=== PATIENT | female | born 1975 ===

== ENCOUNTER 2017-07-27 12:39 | Inpatient (IN) | payer BC ==
[2017-07-24 13:36] VITALS: BMI 28.5
[2017-07-27] MEDS ORDERED: Lactated Ringer's 1,000 ML IV ONE ×2 (16:35→19:20)
[2017-07-27] MEDS ORDERED: Propofol 10 mg/ml Inj (20 ML) ONE (16:37)
[2017-07-27] MEDS ORDERED: Midazolam 2 MG/2 ML VIAL ONE (16:38)
[2017-07-27] MEDS ORDERED: ceFAZolin IV 2 gm in Dextrose 1 GM/50 ML BAG IVPB ONE (16:47)
[2017-07-27] MEDS ORDERED: Bupivacaine 0.5% Inj(30mL) ONE (17:16)
[2017-07-27] MEDS ORDERED: Methylene Blue 10 mg/mL(10ml) IV ONE (21:01)
[2017-07-27] MEDS ORDERED: Neostigmine Methylsulfate 3mg/3ml Syringe IV ONE (21:24)
[2017-07-27] MEDS ORDERED: Naloxone 0.4 mg/ml Inj (Adult) IVP PRN (21:54)
[2017-07-27] MEDS ORDERED: Morphine Monoject Barrel PCA 1mg/ml IV PRN (21:54)
[2017-07-27] MEDS ORDERED: DiphenhydrAMINE 50 mg/ml Inj IVP PRN (21:54)
[2017-07-27] MEDS ORDERED: Oxycodone/Acetaminophen 5/325 mg Tab PO PRN (21:57)
[2017-07-27] MEDS ORDERED: Lactated Ringer's 1,000 ML IV SCH (22:00)
[2017-07-27 22:20] LABS: BASO % 0.4 % (0.0-2.0); EOS # 0.1 K/uL (0.0-0.7); EOS % 0.7 % (0.0-4.0); HEMATOCRIT 34.6 % (34.0-47.0); LYMPH # 1.2 K/uL (1.0-4.3); LYMPH % 8.8 % (20.0-40.0); MEAN CELL VOLUME 97.9 fL (81.0-99.0); MEAN CORPUSCULAR HGB CONC 32.7 g/dL (33.0-37.0); MEAN PLATELET VOLUME 8.4 fL (7.2-11.7); MONO # 0.7 K/uL (0.0-0.8); MONO % 5.4 % (0.0-10.0); PLATELET COUNT 262 K/uL (130-400); RED CELL DISTRIBUTION WIDTH 16.6 % (11.5-14.5)
[2017-07-27 22:25] LABS: CHLORIDE 101 mmol/L (98-107)
[2017-07-27 22:26] LABS: POTASSIUM 4.2 mmol/L (3.6-5.2); SODIUM 131 mmol/L (132-148)
[2017-07-27 22:28] LABS: CARBON DIOXIDE 21 mmol/L (22-30); GFR AFRICAN-AMERICAN > 60
[2017-07-27 22:29] LABS: ALKALINE PHOSPHATASE 88 U/L (38-126); ALT/SGPT 41 U/L (9-52); AST/SGOT 31 U/L (14-36); BILIRUBIN,TOTAL 0.6 mg/dL (0.2-1.3); BLOOD UREA NITROGEN 12 mg/dL (7-17); CALCIUM 8.3 mg/dl (8.6-10.4); GLUCOSE,RANDOM 118 mg/dL (65-105); TOTAL PROTEIN 7.3 g/dL (6.3-8.3)
[2017-07-27] MEDS ORDERED: Sodium Chloride 0.9% 1,000 ML IV SCH (23:00)
[2017-07-27] MEDS ORDERED: Sodium Chloride 0.9% 1,000 ML IV ONE (23:55)
[2017-07-28 01:51] LABS: NEUTROPHIL 86 % (50-75); TOTAL CELLS COUNTED 100
[2017-07-28] MEDS: ceFAZolin IV 1 gm in Dextrose 1 GM/50 ML BAG IVPB SCH ×3 (03:49→20:18)
--- NOTE | 2017-07-28 04:39 | CP.PCM.PN ---
Subjective - Date & Time of Evaluation Date of Evaluation: 07/28/17 Time of Evaluation: 04:30 - Subjective Subjective: Pt seen and examined and report paoin over lower abdomen and incsin only partially imporved iwth internet ecommerce specialist medication. pt not yet ambulaitng, good urine output , toelrating ice chips, denies any headaches, blurry vision. Objective - Vital Signs/Intake and Output Vital Signs (last 24 hours): Temp Pulse Resp BP Pulse Ox 98.3 F 74 20 136/88 100 07/28/17 01:00 07/28/17 01:30 07/28/17 01:30 07/28/17 01:30 07/28/17 01:30 Intake and Output: 07/27/17 07/28/17 18:59 06:59 Output Total 250 Balance -250 - Medications Medications: Current Medications Diphenhydramine HCl (Benadryl) 25 mg IVP Q6 PRN PRN Reason: Itching / Pruritus Lactated Ringer's (Lactated Ringer's) 1,000 mls @ 100 mls/hr IV .Q10H ESPINOZA Cefazolin Sodium/Dextrose (Ancef Iv 1 Gm Duplex) 1 gm in 50 mls @ 100 mls/hr IVPB Q8H ESPINOZA Stop: 07/28/17 20:29 Last Admin: 07/28/17 03:49 Dose: 100 mls/hr Sodium Chloride (Sodium Chloride 0.9%) 1,000 mls @ 100 mls/hr IV .Q10H ESPINOZA Ketorolac Tromethamine (Toradol) 30 mg IVP STAT STA Stop: 07/28/17 04:35 Morphine Sulfate (Morphine) 2 mg IVP Q15MIN PRN PRN Reason: Pain, severe (8-10) Stop: 07/28/17 06:00 Last Admin: 07/28/17 02:28 Dose: 2 mg Morphine Sulfate/Sodium Chloride (Morphine Pediatric Sports Medicine Specialist Monoject Barrel) 30 mg IV Q4H PRN; Protocol PRN Reason: Pain, moderate (4-7) Stop: 07/28/17 21:54 Last Admin: 07/27/17 22:30 Dose: 30 mg Naloxone HCl (Narcan) 0.04 mg IVP Q2M PRN PRN Reason: To reverse sedation Ondansetron HCl (Zofran Inj) 4 mg IVP Q8H PRN PRN Reason: Nausea/Vomiting Oxycodone/Acetaminophen (Percocet 5/325 Mg Tab) 1 tab PO Q4 PRN PRN Reason: Pain, moderate (4-7) Stop: 07/30/17 21:58 Oxycodone/Acetaminophen (Percocet 5/325 Mg Tab) 2 tab PO Q4H PRN PRN Reason: Pain, severe (8-10) Stop: 07/30/17 21:58 - Labs Labs: 07/27/17 22:14 07/27/17 22:14 - Constitutional Appears: Well, Non-toxic - Head Exam Head Exam: ATRAUMATIC - Eye Exam Eye Exam: EOMI, Normal appearance, PERRL Pupil Exam: NORMAL ACCOMODATION - ENT Exam ENT Exam: Mucous Membranes Moist, Normal Exam - Neck Exam Neck Exam: Full ROM, Normal Inspection - Respiratory Exam Respiratory Exam: Clear to Ausculation Bilateral, NORMAL BREATHING PATTERN - Cardiovascular Exam Cardiovascular Exam: REGULAR RHYTHM, +S1, +S2 - GI/Abdominal Exam GI & Abdominal Exam: Soft, Normal Bowel Sounds Additional comments: approrpriately TTP, no guarding, no reboudn tenderness, no rigidity, +BS INcsion C/D/I no vaignal bleeding - Extremities Exam Extremities Exam: Normal Inspection Additional comments: neative gauri's sign, no calf tendenress - Back Exam Back Exam: NORMAL INSPECTION - Neurological Exam Neurological Exam: Alert, Awake, Oriented x3 - Psychiatric Exam Psychiatric exam: Normal Affect, Normal Mood - Skin Skin Exam: Dry, Intact, Normal Color, Warm Assessment and Plan (1) S/P hysterectomy Assessment & Plan: 42 y/o s/p Laparascopic converted to open abdominal hysterectomy POD #1 1. Pain Manamgnet; PCP, TOradol 30mg IVP q 6 hour PRN will transition to PO later in AM 2. D/c martinez 3. Advance diet as tolerated 4. Abdominal binder, incentive spirometer 5. LR @ 100cc/hour 6. IV Helplck once toelratinge regular diet 7. Restart home meds in AM 8. AM labs 9. Encouarge out of bed adn ambaution once d/c internet ecommerce specialist and better pain control Status: Acute
--- NOTE | 2017-07-28 04:43 | PCM.SURG1 ---
Surgeon's Initial Post Op Note - Surgeon's Notes Surgeon: Dianne Youssef MD Manager Of Regulatory Affairs: Leon Pereyra MD Type of Anesthesia: General Endo Pre-Operative Diagnosis: Abnormal uterine bleeding, pelvic pain Operative Findings: Enlarged 12 week uterus, with multiple myomas within right broad ligament x 4 ranging in size 1cm to 4cm, normal ovaires bilaterally, evidecne of short trunacated fallopain tubes from previous tubal ligation, unable to obtain adequate hemostasis despite pressure, hemostati agents, decision made to open and hemostaiss acheive. prolonged duration of operation time grated than 3.5 hours due to increased vascularity from enlarged myomatous uteurs. Bilteral uretal jets visulzied on cystoscopy. Dr Leon Pereyra was surigcal assistna and present for entire case and essential in gaining inital laparascopy entry, retraction, expsoure, holding camera, helping to maniupte uterus for surgical dissection, obtainign hemostasis, converting to open, completing prcoedure, with hysterectomy, obtainign hemostais and closing. Post-Operative Diagnosis: same as above, myomatous uterus Operation Performed: Laparascopic hysterectomy converted to open Abdominal hysterectomy with cystoscopy Specimen/Specimens Removed: uteurs with multiple myoma and fibroids Estimated Blood Loss: EBL {In ML}: 500 (urine output : 500cc) Blood Products Given: N/A Drains Used: No Drains Date of Surgery/Procedure: 07/28/17 Time of Surgery/Procedure: 16:35
--- NOTE | 2017-07-28 08:26 | RAD ---
HISTORY: s/p surgery , insturment COMPARISON: No prior. FINDINGS: BOWEL: There is a nonspecific bowel gas pattern appreciate with limited gas identified within the large bowel and some probable small bowel loops filled with gas in the central abdomen medial to gas filled proximal transverse colon segment. No definite free intrarenal gas. No suspicious intra-abdominal calcifications. BONES: Normal. OTHER FINDINGS: None. IMPRESSION: Nonspecific bowel gas pattern is appreciated. No gross free intrarenal gas. Clinical correlation and follow-up radiography is recommended.
[2017-07-28 09:11] LABS: BASO % 0.2 % (0.0-2.0); EOS % 0.4 % (0.0-4.0); HEMATOCRIT 28.8 % (34.0-47.0); LYMPH # 0.8 K/uL (1.0-4.3); MEAN CELL VOLUME 99.4 fL (81.0-99.0); MEAN CORPUSCULAR HEMOGLOBIN 33.3 pg (27.0-31.0); MEAN CORPUSCULAR HGB CONC 33.5 g/dL (33.0-37.0); MEAN PLATELET VOLUME 8.6 fL (7.2-11.7); MONO # 0.6 K/uL (0.0-0.8); MONO % 6.2 % (0.0-10.0); NRBC % 0.1 % (0.0-2.0); PLATELET COUNT 220 K/uL (130-400); RED CELL DISTRIBUTION WIDTH 16.8 % (11.5-14.5); WHITE BLOOD COUNT 9.4 K/uL (4.8-10.8)
[2017-07-28 09:20] LABS: CHLORIDE 101 mmol/L (98-107); SODIUM 133 mmol/L (132-148)
[2017-07-28 09:23] LABS: BLOOD UREA NITROGEN 12 mg/dL (7-17); CARBON DIOXIDE 24 mmol/L (22-30); GFR AFRICAN-AMERICAN > 60
[2017-07-28 09:24] LABS: CALCIUM 7.4 mg/dl (8.6-10.4); GLUCOSE,RANDOM 93 mg/dL (65-105)
[2017-07-28 09:58] LABS: NEUTROPHIL 86 % (50-75); PLATELET CLUMPS PRESENT; TOTAL CELLS COUNTED 100
[2017-07-28] MEDS: Oxycodone/Acetaminophen 5/325 mg Tab PO PRN (17:39)
[2017-07-28] MEDS ORDERED: Magnesium Hydroxide Susp 30 ml UD PO PRN (20:43)
[2017-07-28] MEDS: Simethicone 80 mg Chewtab PO SCH (21:27)
[2017-07-28] MEDS ORDERED: Simethicone 80 mg Chewtab ONE (21:27)
[2017-07-29] MEDS: Oxycodone/Acetaminophen 5/325 mg Tab PO PRN ×3 (03:40→20:40)
[2017-07-29] MEDS: Simethicone 80 mg Chewtab PO SCH ×3 (06:52→20:43)
--- NOTE | 2017-07-29 09:03 | CP.PCM.PN ---
<Katie Garrido - Last Filed: 07/29/17 08:59> Subjective - Date & Time of Evaluation Date of Evaluation: 07/29/17 Time of Evaluation: 08:59 - Subjective Subjective: PROJECTS MANAGER Progress Note: Patient was seen and examined in the AM at bedside. Patient states her pain is currently 3/10 and the pain medication is working. Patient stated she did walk around yesterday. She states she does not have much of an appetite. She states she has passed flatus but denies a bowel movement. She denies fever, nausea or vomiting. Objective - Vital Signs/Intake and Output Vital Signs (last 24 hours): Temp Pulse Resp BP Pulse Ox 98.2 F 87 20 126/78 100 07/29/17 07:56 07/29/17 07:56 07/29/17 07:56 07/29/17 07:56 07/29/17 07:56 - Medications Medications: Current Medications Diphenhydramine HCl (Benadryl) 25 mg IVP Q6 PRN PRN Reason: Itching / Pruritus Lactated Ringer's (Lactated Ringer's) 1,000 mls @ 100 mls/hr IV .Q10H ESPINOZA Sodium Chloride (Sodium Chloride 0.9%) 1,000 mls @ 100 mls/hr IV .Q10H ESPINOZA Ketorolac Tromethamine (Toradol) 30 mg IVP Q6H PRN PRN Reason: Pain, severe (8-10) Last Admin: 07/28/17 20:20 Dose: 30 mg Magnesium Hydroxide (Milk Of Magnesia) 30 ml PO Q6 PRN PRN Reason: Constipation Last Admin: 07/29/17 03:37 Dose: 30 ml Naloxone HCl (Narcan) 0.04 mg IVP Q2M PRN PRN Reason: To reverse sedation Ondansetron HCl (Zofran Inj) 4 mg IVP Q8H PRN PRN Reason: Nausea/Vomiting Oxycodone/Acetaminophen (Percocet 5/325 Mg Tab) 1 tab PO Q4 PRN PRN Reason: Pain, moderate (4-7) Stop: 07/30/17 21:58 Oxycodone/Acetaminophen (Percocet 5/325 Mg Tab) 2 tab PO Q4H PRN PRN Reason: Pain, severe (8-10) Stop: 07/30/17 21:58 Last Admin: 07/29/17 03:40 Dose: 2 tab Sennosides (Senokot Tab) 17.2 mg PO DAILY [facility] Last Admin: 07/28/17 21:26 Dose: 17.2 mg Simethicone (Mylicon Chew Tab) 80 mg PO Q8 [facility] Last Admin: 07/29/17 06:52 Dose: 80 mg - Labs Labs: 07/28/17 09:00 07/28/17 09:00 - Constitutional Appears: No Acute Distress - Head Exam Head Exam: ATRAUMATIC, NORMAL INSPECTION, NORMOCEPHALIC - Eye Exam Eye Exam: EOMI, Normal appearance - ENT Exam ENT Exam: Mucous Membranes Moist - Respiratory Exam Respiratory Exam: NORMAL BREATHING PATTERN - Cardiovascular Exam Cardiovascular Exam: REGULAR RHYTHM, RRR - GI/Abdominal Exam GI & Abdominal Exam: Soft, Tenderness, Normal Bowel Sounds Additional comments: incision is dry and intact - Extremities Exam Extremities Exam: Normal Inspection. absent: Joint Swelling, Pedal Edema, Tenderness - Neurological Exam Neurological Exam: Alert, Awake, Oriented x3 - Psychiatric Exam Psychiatric exam: Normal Affect, Normal Mood - Skin Skin Exam: Dry, Intact, Normal Color, Warm Assessment and Plan - Assessment and Plan (Free Text) Assessment: 1.) Laparascopic hysterectomy converted to open Abdominal hysterectomy with cystoscopy - Post op day 2 - Continue pain management - Encourage ambulation - Keep dressing dry and clean - Disposition: discharge tomorrow Case discussed with Dr. Miakel Garrido PGY-1 <Dianne Youssef - Last Filed: 07/30/17 21:39> Subjective - Subjective Subjective: agree with above s/p lap converted to open hysterecotmy pOD #2 improving cont curreng managment regualr dieet encoaurge ambaiton bowel regimen labs Objective - Vital Signs/Intake and Output Vital Signs (last 24 hours): Temp Pulse Resp BP Pulse Ox 98.2 F 85 18 119/77 99 07/30/17 08:00 07/30/17 08:00 07/30/17 08:00 07/30/17 08:00 07/30/17 08:00 - Labs Labs: 07/28/17 09:00 07/28/17 09:00 Assessment and Plan (1) S/P hysterectomy Status: Acute
[2017-07-29] MEDS ORDERED: Influenza Vaccine 60 mcg/0.5 mL SYR (4YR UP) IM ONE (09:06)
[2017-07-30 07:48] VITALS: BP 119/77; PULSE 85; RESP 18; TEMP 98.2; O2SAT 99
--- NOTE | 2017-07-30 08:28 | CP.PCM.DIS ---
Provider - Provider Date of Admission: 07/27/17 21:57 Attending physician: Dianne Youssef MD Time Spent in preparation of Discharge (in minutes): 31 Hospital Course - Lab Results Lab Results: Most Recent Lab Values WBC 9.4 K/uL (4.8-10.8) 07/28/17 09:00 RBC 2.90 Mil/uL (3.80-5.20) L 07/28/17 09:00 Hgb 9.6 g/dL (11.0-16.0) L 07/28/17 09:00 Hct 28.8 % (34.0-47.0) L 07/28/17 09:00 MCV 99.4 fL (81.0-99.0) H 07/28/17 09:00 MCH 33.3 pg (27.0-31.0) H 07/28/17 09:00 MCHC 33.5 g/dL (33.0-37.0) 07/28/17 09:00 RDW 16.8 % (11.5-14.5) H 07/28/17 09:00 Plt Count 220 K/uL (130-400) 07/28/17 09:00 MPV 8.6 fL (7.2-11.7) 07/28/17 09:00 Neut % (Auto) 84.2 % (50.0-75.0) H 07/28/17 09:00 Lymph % (Auto) 9.0 % (20.0-40.0) L 07/28/17 09:00 [place] % (Auto) 6.2 % (0.0-10.0) 07/28/17 09:00 Eos % (Auto) 0.4 % (0.0-4.0) 07/28/17 09:00 Baso % (Auto) 0.2 % (0.0-2.0) 07/28/17 09:00 Neut # 7.9 K/uL (1.8-7.0) H 07/28/17 09:00 Lymph # 0.8 K/uL (1.0-4.3) L 07/28/17 09:00 [place] # 0.6 K/uL (0.0-0.8) 07/28/17 09:00 Eos # 0.0 K/uL (0.0-0.7) 07/28/17 09:00 Baso # 0.0 K/uL (0.0-0.2) 07/28/17 09:00 Neutrophils % (Manual) 86 % (50-75) H 07/28/17 09:00 Band Neutrophils % 4 % (0-2) H 07/28/17 09:00 Lymphocytes % (Manual) 8 % (20-40) L 07/28/17 09:00 Monocytes % (Manual) 2 % (0-10) 07/28/17 09:00 Platelet Estimate Normal (NORMAL) 07/28/17 09:00 Plt Clumps, EDTA Present 07/28/17 09:00 Anisocytosis (manual) Slight 07/28/17 09:00 Macrocytosis (manual) Slight 07/28/17 09:00 Sodium 133 mmol/L (132-148) 07/28/17 09:00 Potassium 4.0 mmol/L (3.6-5.2) 07/28/17 09:00 Chloride 101 mmol/L (98-107) 07/28/17 09:00 Carbon Dioxide 24 mmol/L (22-30) 07/28/17 09:00 Anion Gap 12 (10-20) 07/28/17 09:00 BUN 12 mg/dL (7-17) 07/28/17 09:00 Creatinine 0.9 mg/dL (0.7-1.2) 07/28/17 09:00 Est GFR ( Amer) > 60 07/28/17 09:00 Est GFR (Non-Af Amer) > 60 07/28/17 09:00 Random Glucose 93 mg/dL (65-105) 07/28/17 09:00 Calcium 7.4 mg/dl (8.6-10.4) L 07/28/17 09:00 Total Bilirubin 0.6 mg/dL (0.2-1.3) 07/27/17 22:14 AST 31 U/L (14-36) 07/27/17 22:14 ALT 41 U/L (9-52) 07/27/17 22:14 Alkaline Phosphatase 88 U/L (38-126) 07/27/17 22:14 Total Protein 7.3 g/dL (6.3-8.3) 07/27/17 22:14 Albumin 3.6 g/dL (3.5-5.0) 07/27/17 22:14 Globulin 3.7 gm/dL (2.2-3.9) 07/27/17 22:14 Albumin/Globulin Ratio 1.0 (1.0-2.1) 07/27/17 22:14 Blood Type O POSITIVE 07/27/17 13:14 Antibody Screen Negative 07/27/17 13:14 - Hospital Course Hospital Course: Patient is a 42 year old female with history of uterine fibroids, abnormal uterine bleeding and pelvic pain who presented to [facility] for scheduled laparoscopic hysterectomy. Patient was pre-oped and consented. Patient underwent laparoscopic hysterectomy converted to open abdominal hysterectomy with cystoscopy. Patient tolerated the procedure well and was monitored post operatively. Pain was controlled. Patient was ambulating and tolerating diet. Passing flatus and having BMs. Urinating without difficulty. Patient medically stable for discharge. Advised pelvic rest x 6 weeks and instructed to follow up with Dr Youssef within 1 week. All questions and concerns were addressed. Discharge Exam - Head Exam Head Exam: ATRAUMATIC, NORMAL INSPECTION, NORMOCEPHALIC - Eye Exam Eye Exam: EOMI, Normal appearance Pupil Exam: NORMAL ACCOMODATION, PERRL - ENT Exam ENT Exam: Mucous Membranes Moist - Neck Exam Neck exam: Full Rom - Respiratory Exam Respiratory Exam: Clear to PA & Lateral, NORMAL BREATHING PATTERN, UNREMARKABLE. absent: Rales, Rhonchi, Wheezes - Cardiovascular Exam Cardiovascular Exam: REGULAR RHYTHM, +S1, +S2 - GI/Abdominal Exam GI & Abdominal Exam: Normal Bowel Sounds, Soft, Tenderness. absent: Guarding, Rigid Additional comments: Laparotomy Incision c/d/i with steristrips Laparoscopic incisions c/d/i with dermabond Abdominal binder in place - Extremities Exam Extremities exam: normal inspection, pedal pulses present - Back Exam Back exam: NORMAL INSPECTION - Neurological Exam Neurological exam: Alert, CN II-XII Intact, Oriented x3 - Psychiatric Exam Psychiatric exam: Normal Affect, Normal Mood - Skin Skin Exam: Normal Color, Warm Discharge Plan - Follow Up Plan Condition: GOOD Disposition: HOME/ ROUTINE Instructions: Abdominal Hysterectomy (DC), Iron Rich Diet (DC), Pain Management After Surgery (DC), Care For Your Absorbable Stitches (DC) Additional Instructions: 1. Motrin and percocet prn pain 2. Pelvic rest x 6 weeks 3. F/U with Dr Youssef within 1 week 4. Iron rich diet 5. Return to ED if having fevers, severe abdominal pain, worsening symptoms
[2017-07-30] MEDS: Oxycodone/Acetaminophen 5/325 mg Tab PO PRN (08:48)
--- NOTE | 2017-07-30 21:46 | CP.PCM.PN ---
Subjective - Date & Time of Evaluation Date of Evaluation: 07/30/17 Time of Evaluation: 07:00 - Subjective Subjective: pt seen and examien and reports feeling better. pt tolerating regular diet , having nromal bm, preorts pain is controlled dneis any lightheadnes,s dizzyness , cp, sob Objective - Vital Signs/Intake and Output Vital Signs (last 24 hours): Temp Pulse Resp BP Pulse Ox 98.2 F 85 18 119/77 99 07/30/17 08:00 07/30/17 08:00 07/30/17 08:00 07/30/17 08:00 07/30/17 08:00 - Labs Labs: 07/28/17 09:00 07/28/17 09:00 - Constitutional Appears: Well, Non-toxic - Head Exam Head Exam: ATRAUMATIC, NORMAL INSPECTION - Eye Exam Eye Exam: EOMI, PERRL Pupil Exam: NORMAL ACCOMODATION - ENT Exam ENT Exam: Mucous Membranes Moist, Normal Exam - Neck Exam Neck Exam: Full ROM, Normal Inspection - Respiratory Exam Respiratory Exam: Clear to Ausculation Bilateral, NORMAL BREATHING PATTERN - Cardiovascular Exam Cardiovascular Exam: REGULAR RHYTHM, +S1, +S2 - GI/Abdominal Exam GI & Abdominal Exam: Soft, Normal Bowel Sounds Additional comments: non tender, no guaridn,no reobudn tendneres, no rigityd +BS incsin cd/i no vaignal bleeidng - Back Exam Back Exam: NORMAL INSPECTION - Neurological Exam Neurological Exam: Alert, Awake, CN II-XII Intact, Oriented x3 - Psychiatric Exam Psychiatric exam: Normal Affect, Normal Mood - Skin Skin Exam: Intact, Warm - Additional Findings Additional findings: negatieve homans' sign Assessment and Plan (1) S/P hysterectomy Assessment & Plan: s/p laparasocpi converted to open hysterecotmy pod #3 doign well, stable for d/c d/c home rto 1 week preciaotn given Status: Acute
--- NOTE | 2017-07-31 21:41 | OP ---
DATE OF PROCEDURE: 07/27/2017 PREOPERATIVE DIAGNOSES: Abnormal uterine bleeding and pelvic pain. POSTOPERATIVE DIAGNOSES: Abnormal uterine bleeding, pelvic pain, and myomatous uterus. PROCEDURES PERFORMED: Laparoscopic hysterectomy, converted to open abdominal hysterectomy, with cystoscopy. SURGEON: Dianne Youssef MD. IMMIGRATION ATTORNEY: Leon Pereyra MD. The assistant product manager was present for entire case and was essential in gaining laparoscopic entry, retraction and closure, holding camera, helping to manipulate uterus for surgical dissection, obtaining hemostasis, converting to open procedure with hysterectomy, removing specimens, closing all layers and was present for the entire case. TYPE OF ANESTHESIA: General endotracheal. OPERATIVE FINDINGS: Enlarged 12-week size uterus and multiple myomas with right broad ligament x4 ranging in size 1 to 4 cm. Normal ovaries bilaterally. Evidence of a short tourniquet of fallopian tubes from previous tubal ligation. Unable to obtain adequate hemostasis with pressure and hemostatic agents. Decision was made to open and hemostasis achieved at the area of right broad ligament. Prolonged duration of operation time extending to 3-1/2 hours due to increase in vascularity from the large myomatous other than the metastatic uterus. Bilateral ureteral jets visualized on cystoscopy. ESTIMATED BLOOD LOSS: 500 mL. URINE OUTPUT: 500 mL. BLOOD PRODUCTS: None. COMPLICATIONS: None. SPECIMENS REMOVED: Uterus with multiple myomas. DESCRIPTION OF PROCEDURE: The patient was taken to the operating room where she was given general anesthesia. Once it was found to be adequate, she was placed on the operating table in dorsal lithotomy position with legs spread using stirrups. The patient was then prepped and draped in usual sterile fashion. A time-out confirmed the correct patient and correct procedure. The patient was given preoperative prophylactic antibiotics. A Chavez catheter was then inserted in through the urethra to drain the bladder. Mack retractor was placed in the anterior and posterior fornix of the vagina and the cervix was adequately visualized. A ZUMI uterine manipulator with a Ashleigh colpotomy ring and a vaginal occluder were then placed, and the balloon was then insufflated with 8 mL of air. Following this, the occluder was noted to be in place. All of the instruments were removed. The surgeon was then re-gloved. Attention was then turned to the abdomen. The laparoscopic port sites were then anesthetized with an intradermal injection of 0.25% Marcaine. There were 4 ports placed including a 4-mm right subcostal port, 5-mm umbilical port, 5-mm right lower quadrant port, and a 5-mm left lower quadrant port. A Veress needle was inserted through a small incision at the base of the umbilicus and pneumoperitoneum was insufflated without difficulty. The port was then inserted under direct visualization with the scope. There were no underlying adhesions noted. All remaining ports were inserted under direct laparoscopic guidance. The abdomen was then explored with the findings as noted. Following this, the right ovarian tube was then identified and visualized, and the round ligament was then grasped, and using bipolar cutting forceps, it was incised and carried down to the anterior portion of the broad ligament in which myomas were then noted. Bleeding was then noted and pressure was applied with careful use of bipolar electrocautery. Pressure was then applied. Attention was then turned to left in which the round ligament was identified, grasped, and cut using a LigaSure device and carried to the anterior portion of the broad to the vesicouterine fold which was incised to mobilize the bladder. Following this, the utero-ovarian ligament on the left side was then grasped and incised using the LigaSure device, and there was good hemostasis noted. Following this, attention was then turned to the right side of the broad ligament in which there was still oozing noted at the site and after multiple attempts at hemostatic agents, pressures, fluids, etc., decision was made to convert to open procedure. All laparoscopic ports were then removed and a Pfannenstiel skin incision was made and carried down to the underlying fascia with Bovie. The fascia was then incised in the midline. The incision was extended laterally with the Bovie. The superior aspect of the fascial incision was grasped with Allis and Xochitl clamps and underlying rectus muscle was resected off bluntly. The rectus muscle was then bluntly in the midline. The peritoneum was identified in a clear space. Incision was extended laterally. There was blood noted which was evacuated and cleared. The uterus was then exteriorized and 0-Vicryl stitch was then placed in close proximity of the broad ligament where bleeding was noted. In the anterior portion of the broad, there was hemostasis noted and carried in line to the bladder flap. The bladder flap was pushed away down entirely over the lower uterine segment, pushed away from both the operative site and both the right and left side. Subsequently, the posterior leaf of the broad ligament was opened sharply and LigaSure instrument was then placed below the level of the ovary in both the right and left with care being taken not to damage the bowel or uterus and the utero-ovarian was then grasped, cauterized, and again dissected. Further dissection of the broad ligament was carried down posterior towards the uterine vessels in which there was initially blood noted and hemostasis was able to be obtained using the LigaSure device. The bladder was then again pushed down towards the vagina. Subsequently, the uterine vessel was then grasped again with a LigaSure machine, cauterized, and dissected. The cardinal ligaments were further grasped, dissected, and suture ligated again with LigaSure machine. At this point, LigaSure instrument was stopped and straight Zeppelin clamps were placed at the cardinal ligaments down towards the uterosacral ligaments. The cardinal ligaments were grasped, dissected with a scalpel, and ligated with transfixion suture with 1 Vicryl suture down to the uterosacral ligament. The uterosacral ligaments were grasped, dissected, and suture ligated again with 1 Vicryl suture and transfixion suture. At this point, the bladder was then pushed over the vagina and at this point, right-angle retractor was placed over the vagina at the level of the cervix and using the Chris scissors. The cervix was dissected away from the vagina. At this point, the vaginal cuff was then ligated with 1 Vicryl suture from the midline to each lateral corner. After good hemostasis had been achieved in the vaginal cuff, the right and left adnexa were visualized and no bleeding was noted. The cuff was intact and there was no bleeding noted. The bladder was visualized and no bleeding was noted. The retractors that were initially placed to help retract the bowel were then allowed to be removed. At this time, general closure of the abdomen was carried out. The peritoneum was closed with 2-0 Vicryl suture in a continuous running suture fashion. The fascia was closed with 1 Vicryl suture from each corner to corner. Subcutaneous tissue was cauterized. No bleeding was noted. Subcutaneous tissue was then re-approximated and closed using plain suture in an interrupted manner. The skin was approximated with 4-0 Monocryl in a running subcuticular fashion. The abdomen was then cleaned and irrigated, and abdominal dressings were applied to each of the Pfannenstiel incision and the laparoscopic port sites which were closed with 4-0 Monocryl. Following this, attention was then turned to the perineum in which the Chavez catheter was then removed. A 21-Slovak rigid cystoscope was passed with a 30-degree lens through the suprapubic sinus easily into the bladder. The bladder was systemically inspected and showed no evidence of bleeding, injury, or sutures. The bilateral ureteral orifices were noted to be peristalsing and venting. The cystoscope was then removed. A new Chavez catheter was then reinserted. At the end of the procedure, all needles, sponge, and instrument counts were noted as correct x2. The patient tolerated the procedure well and was transferred to the recovery room in stable condition. Dianne Youssef MD
== END 2017-07-30 08:55 | disposition home or self-care (01) | DRG 743 ==
LOC: C.SDS 12:39 → EDSTATUS 16:00 → C.4M 21:57
PROVIDERS: ADMIT Obstetrics & Gynecology; ATTEND Obstetrics & Gynecology
PROC: 0UT90ZZ Resection of Uterus, Open Approach (ICD-10-PCS; principal; 2017-07-27 16:00)
PROC: 0UJD4ZZ Inspection of Uterus and Cervix, Percutaneous Endoscopic Approach (ICD-10-PCS; 2017-07-27 16:00)
PROC: 0TJB8ZZ Inspection of Bladder, Via Natural or Artificial Opening Endoscopic (ICD-10-PCS; 2017-07-27 16:00)
DX: D25.9 Leiomyoma of uterus, unspecified (principal); R10.2 Pelvic and perineal pain; N93.9 Abnormal uterine and vaginal bleeding, unspecified; Z53.31 Laparoscopic surgical procedure converted to open procedure; Z98.51 Tubal ligation status; N80.0 Endometriosis of uterus

== ENCOUNTER 2017-09-12 09:32 | Emergency (ER) | payer BC ==
[2017-09-12 09:33] VITALS: BMI 28.5
[2017-09-12 09:43] VITALS: TEMP 97.4
[2017-09-12] MEDS ORDERED: Aluminum Hydroxide/Magnesium Hydroxide Susp (30 mL) PO STA (10:20)
[2017-09-12] MEDS ORDERED: Lactated Ringer's 1,000 ML IV ONE (10:24)
[2017-09-12 10:49] LABS: BASO % 0.7 % (0.0-2.0); EOS # 0.3 K/uL (0.0-0.7); HEMATOCRIT 35.3 % (34.0-47.0); LYMPH # 1.3 K/uL (1.0-4.3); LYMPH % 18.1 % (20.0-40.0); MEAN CELL VOLUME 89.3 fL (81.0-99.0); MEAN CORPUSCULAR HEMOGLOBIN 29.4 pg (27.0-31.0); MEAN CORPUSCULAR HGB CONC 32.9 g/dL (33.0-37.0); MONO # 0.5 K/uL (0.0-0.8); MONO % 6.4 % (0.0-10.0); NRBC % 0.2 % (0.0-2.0); RED CELL DISTRIBUTION WIDTH 17.1 % (11.5-14.5); WHITE BLOOD COUNT 7.1 K/uL (4.8-10.8)
[2017-09-12 10:59] LABS: RBC URINE 106 /hpf (0-3); URINE BACTERIA OCC (<OCC); URINE BILIRUBIN NEGATIVE (NEGATIVE); URINE BLOOD 3+ (NEGATIVE); URINE COLOR Yellow (YELLOW); URINE GLUCOSE (UA) NORMAL (Normal); URINE HYALINE CAST 0-2 /lpf (0-2); URINE KETONE NEGATIVE (NEGATIVE); URINE LEUKOCYTE ESTERASE 2+ Leu/uL (Negative); URINE PROTEIN 1+ mg/dL (NEGATIVE); URINE UROBILINOGEN NORMAL mg/dL (0.2-1.0); WBC CLUMPS FEW /hpf; WBC URINE 38 /hpf (0-5)
[2017-09-12] MEDS ORDERED: Aluminum Hydroxide/Magnesium Hydroxide Susp (30 mL) ONE (11:08)
[2017-09-12] MEDS ORDERED: Lactated Ringer's 1,000 ML ONE (11:08)
--- NOTE | 2017-09-12 11:15 | CT ---
PROCEDURE: CT Abdomen and Pelvis without Oral or IV contrast. HISTORY: abd pain COMPARISON: Abdominal radiograph performed 07/27/17 TECHNIQUE: Contiguous axial images of the abdomen and pelvis. No oral or IV contrast administered. Coronal and Sagittal reformats generated and reviewed. Radiation dose: Total exam DLP = 483.31 mGy-cm. This CT exam was performed using one or more of the following dose reduction techniques: Automated exposure control, adjustment of the mA and/or kV according to patient size, and/or use of iterative reconstruction technique. FINDINGS: There is limited evaluation of the solid organs without the administration of IV contrast. LOWER THORAX: No visible consolidation, pleural effusion, or pneumothorax. LIVER: Hepatomegaly. GALLBLADDER AND BILE DUCTS: Unremarkable unenhanced appearance. PANCREAS: Unremarkable unenhanced appearance. SPLEEN: Unremarkable unenhanced appearance. ADRENALS: Unremarkable unenhanced appearance. KIDNEYS AND URETERS: No hydronephrosis or obstructing renal calculus. Exophytic 19 mm lesion measures approximately 5 HU, likely cyst. Mild prominence of the left ureter without obstructing calculus. BLADDER: Mild thickening of the urinary bladder wall may be exaggerated by under distension. REPRODUCTIVE: Uterus is absent presumably due to hysterectomy. Left adnexal prominence of uncertain significance. APPENDIX: The appendix appears within normal limits of caliber. No secondary signs of acute appendicitis. BOWEL: The stomach is nondistended. Lack of oral contrast limits evaluation for bowel pathology. The bowel loops appear within normal limits of caliber without evidence of intestinal obstruction. Mild small bowel wall thickening. PERITONEUM: No significant free fluid. No definite free air. LYMPH NODES: Prominent but sub cm retroperitoneal lymph nodes, nonspecific. No bulky lymphadenopathy identified. VASCULATURE: No aortic aneurysm. BONES: No acute osseous abnormality is detected. OTHER FINDINGS: None. IMPRESSION: Mild prominence of the left ureter without obstructing calculus. Correlate clinically for possibility of recently passed stone. Suggest correlation with urinalysis and if indicated follow-up with car groomer to exclude possibility of stricture or neoplasm. Mild thickening of the urinary bladder wall may be exaggerated by under distension. Exophytic 19 mm lesion measures approximately 5 HU, likely cyst. Hepatomegaly. Mild small bowel wall thickening may be seen in setting of enteritis. Uterus is absent presumably due to hysterectomy. Left adnexal prominence of uncertain significance. Recommend clinical correlation and pelvic ultrasound for further evaluation.
[2017-09-12 11:59] LABS: BILIRUBIN,TOTAL 0.7 mg/dL (0.2-1.3); CALCIUM 8.8 mg/dl (8.6-10.4); TOTAL PROTEIN 8.9 g/dL (6.3-8.3)
[2017-09-12 12:07] LABS: ALB/GLOB RATIO 0.8 (1.0-2.1)
--- NOTE | 2017-09-12 12:56 | C.PDOC ---
History Of Present Illness 42 year old female with a history of kidney stones, Fibroids, and hysterectomy presents to the ED with complaints of vomiting, abdominal pain, lower back pain , inability to urinate, and headache for 3 days. Patient reports she had hysterectomy on August 06, 2017 to relieve heavy bleeding relating to fibroids , with ovaries intact. Patient notes transient relief of symptoms with Ibuprofen. She describes a pressure sensation when needing to urinate but is unable to at times. Patient states she has been eating less to avoid episodes of vomiting. Patient denies vaginal bleeding, vaginal discharge, diarrhea, fever , chills, chest pain, shortness of breath, or other complaints at this time. HARDWARE ENGINEER: Dr. Dianne Youssef Time Seen by Provider: 09/12/17 10:10 Chief Complaint (Nursing): Abdominal Pain History Per: Patient History/Exam Limitations: no limitations Onset/Duration Of Symptoms: Days (3 days ) Current Symptoms Are (Timing): Still Present Radiation Of Pain To:: None Quality Of Discomfort: "Pain" Associated Symptoms: Vomiting, Other (inability to urinate ). denies: Fever, Chills, Diarrhea Exacerbating Factors: None Alleviating Factors: None Recent travel outside of the [place]: No Abnormal Vaginal Bleeding: No Past Medical History Reviewed: Historical Data, Nursing Documentation, Vital Signs Vital Signs: Last Vital Signs Temp 97.4 F L 09/12/17 09:41 Pulse 84 09/12/17 09:41 Resp 20 09/12/17 09:41 BP 147/85 09/12/17 09:41 Pulse Ox 100 09/12/17 14:16 - Medical History PMH: Anemia, Anxiety, Asthma, HTN, Hypercholesterolemia, Kidney Stones, Chronic Kidney Disease - [id number] Procedures C.A.T. SCAN OF HEAD (04/12/07) INJECT/INFUSE NEC (10/12/12) INSPECTION OF BLADDER, ENDO (07/27/17) INSPECTION OF UTERUS AND CERVIX, PERC ENDO APPROACH (07/27/17) MANUAL ASSIST DELIV NEC (04/10/00) REPAIR OB LACERATION NEC (04/10/00) RESECTION OF UTERUS, OPEN APPROACH (07/27/17) Family History: States: Unknown Family Hx - Social History Hx Tobacco Use: No Hx Alcohol Use: No Hx Substance Use: No - Immunization History Hx Tetanus Toxoid Vaccination: No Hx Influenza Vaccination: No Hx Pneumococcal Vaccination: No Review Of Systems Constitutional: Negative for: Fever, Chills Cardiovascular: Negative for: Chest Pain, Palpitations Respiratory: Negative for: Cough, Shortness of Breath Gastrointestinal: Positive for: Vomiting, Abdominal Pain. Negative for: Diarrhea, Constipation Physical Exam - Physical Exam Appears: Non-toxic, No Acute Distress Skin: Warm, Dry, No Rash Head: Atraumatic, Normacephalic, No Tenderness Eye(s): bilateral: Normal Inspection, PERRL, EOMI Oral Mucosa: Moist Neck: Supple Chest: Symmetrical, No Deformity Cardiovascular: Rhythm Regular, No Murmur Respiratory: No Rales, No Rhonchi, No Wheezing, Other (clear to auscultation bilaterally ) Gastrointestinal/Abdominal: Soft, No Tenderness, No Distention, No Guarding, No Rebound, Other (well healing bikini line scar with no erythema, warmth, or dehiscence ) Back: No CVA Tenderness Extremity: Normal ROM, No Tenderness Neurological/Psych: Oriented x3 ED Course And Treatment - Laboratory Results Result Diagrams: 09/12/17 10:41 09/12/17 10:41 O2 Sat by Pulse Oximetry: 100 (RA) Pulse Ox Interpretation: Normal - CT Scan/US Abdomen & Pelvis CT Other Rad Studies (CT/US): Read By Radiologist, Radiology Report Reviewed CT/US Interpretation: FINDINGS: There is limited evaluation of the solid organs without the administration of IV contrast. LOWER THORAX: No visible consolidation, pleural effusion, or pneumothorax. LIVER: Hepatomegaly. GALLBLADDER AND BILE DUCTS: Unremarkable unenhanced appearance. PANCREAS: Unremarkable unenhanced appearance. SPLEEN: Unremarkable unenhanced appearance. ADRENALS: Unremarkable unenhanced appearance. KIDNEYS AND URETERS : No hydronephrosis or obstructing renal calculus. Exophytic 19 mm lesion measures approximately 5 HU, likely cyst. Mild prominence of the left ureter without obstructing calculus. BLADDER: Mild thickening of the urinary bladder wall may be exaggerated by under distension. REPRODUCTIVE: Uterus is absent presumably due to hysterectomy. Left adnexal prominence of uncertain significance. APPENDIX: The appendix appears within normal limits of caliber. No secondary signs of acute appendicitis. BOWEL: The stomach is nondistended. Lack of oral contrast limits evaluation for bowel pathology. The bowel loops appear within normal limits of caliber without evidence of intestinal obstruction. Mild small bowel wall thickening. PERITONEUM: No significant free fluid. No definite free air. LYMPH NODES: Prominent but sub cm retroperitoneal lymph nodes, nonspecific. No bulky lymphadenopathy identified. VASCULATURE: No aortic aneurysm. BONES: No acute osseous abnormality is detected. OTHER FINDINGS: None. IMPRESSION: Mild prominence of the left ureter without obstructing calculus. Correlate clinically for possibility of recently passed stone. Suggest correlation with urinalysis and if indicated follow-up with chief growth officer to exclude possibility of stricture or neoplasm. Mild thickening of the urinary bladder wall may be exaggerated by under distension. Exophytic 19 mm lesion measures approximately 5 HU, likely cyst. Hepatomegaly. Mild small bowel wall thickening may be seen in setting of enteritis. Uterus is absent presumably due to hysterectomy. Left adnexal prominence of uncertain significance. Recommend clinical correlation and pelvic ultrasound for further evaluation. Transvaginal US Other Rad Studies (CT/US): Read By Radiologist, Radiology Report Reviewed CT/US Interpretation: Findings: The patient is status post hysterectomy. The right ovary is not visualized. The left ovary measures approximately 3.0 x 2.0 x 3.0 cm. Left adnexal 1.5 x 1.3 x 0.8 cm mildly complicated ovarian cyst versus mild hydrosalpinx. Blood flow is demonstrated to the left ovary. No significant free fluid identified. Impression: Hysterectomy. The right ovary is not visualized. Mildly complicated left ovarian cyst measuring approximately 1.5 x 1.3 x 0.8 cm versus mild hydrosalpinx; correlate clinically. Recommend 6 week ultrasound follow-up to assess for resolution. Progress Note: Abdomen & pelvis CT, transvaginal US, blood work, and labs. Patient was given Pepcid, Zofran, Maalox, and Lactated Ringer's IV. - Physician Consult Information Time Consulting Physician Contacted: 13:40 Physician Contacted: Alma Mai Outcome Of Conversation: Dr. Mai recommends close out patient follow up with himself and Dr. Youssef. Medical Decision Making Medical Decision Making: Differential Diagnoses: Kidney Stones vs. Constipation vs. Diverticulitis vs. Colitis Patient was seen by Dr. Roberto Youssef in ED and is requesting a pelvic US be ordered. Dr. Youssef is requesting Dr. Derek Mai be consulted due to patient having blood in urine and high creatinine levels. Disposition Discussed With : Dianne Youssef Counseled Patient/Family Regarding: Studies Performed, Diagnosis, Need For Followup - Disposition Referrals: Alma Mai MD [Staff Provider] - Dianne Youssef MD [Staff Provider] - Disposition: HOME/ ROUTINE Disposition Time: 14:47 Condition: IMPROVED Additional Instructions: Follow up with Dr. Youssef and Dr. Mai on Monday. Call for appointment. Return to the Emergency Department with any further concerns. Drink plenty water. Take Tylenol for pain. Instructions: [facility] (ED) Forms: [facility] ([place]ran), General Discharge Instructions - POA Present On Arrival: None - Clinical Impression Clinical Impression: Abdominal pain, Nausea - Scribe Statement The provider has reviewed the documentation as recorded by the Scribe Nicky Coronel All medical record entries made by the Scribe were at my direction and personally dictated by me. I have reviewed the chart and agree that the record accurately reflects my personal performance of the history, physical exam, medical decision making, and the department course for this patient. I have also personally directed, reviewed, and agree with the discharge instructions and disposition.
--- NOTE | 2017-09-12 13:22 | US ---
Indication: Left adnexal prominence. Comparison: CT abdomen pelvis without contrast performed 09/12/17 Technique: Real-time transabdominal pelvic ultrasound was performed. In addition a transvaginal pelvic ultrasound was necessary to better depict pelvic anatomy. Findings: The patient is status post hysterectomy. The right ovary is not visualized. The left ovary measures approximately 3.0 x 2.0 x 3.0 cm. Left adnexal 1.5 x 1.3 x 0.8 cm mildly complicated ovarian cyst versus mild hydrosalpinx. Blood flow is demonstrated to the left ovary. No significant free fluid identified. Impression: Hysterectomy. The right ovary is not visualized. Mildly complicated left ovarian cyst measuring approximately 1.5 x 1.3 x 0.8 cm versus mild hydrosalpinx; correlate clinically. Recommend 6 week ultrasound follow-up to assess for resolution.
--- NOTE | 2017-09-12 13:27 | CP.PCM.CON ---
History of Present Illness - History of Present Illness History of Present Illness: 42 y/o s/p laparascopic converted to mini laparasotomy for benign indication in 08/03/2017 ~ 6 weeks post op, with hx of nephrolithais c/o of non specific LLQ sharp pain radiating to abdomen worsening over past 1 week. pt reprots pain is improved with otc but returns and reports new onset of non bloody non biloiu ssemeis x 1. Pt reports urinary frequency with little to no urine excreted, denies any gross blood and has occasionla dysuira. pt denies any fever, chlils, CP, SOB, vaginal bleeding. Pt does have intermitten constipation. 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: hx of fibroids, aub denies hx of abnormal pap, ovarian cysts, PMH: Nephrolithaisis, Asthma, Anxiety, HLD PSH: lap converted to min lap hysterecotmy FHX: non contrubitory SHX: negative etoh/tobacco/drugs MEDS: Percocet NKDA Review of Systems - Review of Systems All systems: reviewed and no additional remarkable complaints except - Constitutional Constitutional: As Per HPI - Cardiovascular Cardiovascular: As Per HPI - Respiratory Respiratory: As Per HPI - Gastrointestinal Gastrointestinal: As Per HPI, Constipation - Genitourinary Genitourinary: As Per HPI, Urinary Frequency - Menstruation Menstruation: As Per HPI - Musculoskeletal Musculoskeletal: As Per HPI Past Patient History - Infectious Disease Hx of Infectious Diseases: None - Tetanus Immunizations Tetanus Immunization: Unknown - Past Medical History & Family History Past Medical History?: Yes - Past Social History Smoking Status: Former Smoker - CARDIAC Hx Hypercholesterolemia: Yes Hx Hypertension: Yes - PULMONARY Hx Asthma: Yes - NEUROLOGICAL Hx Neurological Disorder: Yes Hx Dizziness: Yes - RENAL Hx Chronic Kidney Disease: Yes Hx Kidney Stones: Yes - HEMATOLOGICAL/ONCOLOGICAL Hx Anemia: Yes - GENITOURINARY/GYNECOLOGICAL Hx Genitourinary Disorders: Yes Other/Comment: HX: ABNORMAL UTERINE BLEEDING - PSYCHIATRIC Hx Anxiety: Yes Hx Substance Use: No - SURGICAL HISTORY Hx Surgeries: Yes Hx Hysterectomy: Yes (07/27/17) Hx Tubal Ligation: Yes - ANESTHESIA Hx Anesthesia: Yes Hx Anesthesia Reactions: Yes (PANIC ATTACK CLAUSTROPHOBIC) Hx Malignant Hyperthermia: No Meds Allergies/Adverse Reactions: Allergies Allergy/AdvReac Type Severity Reaction Status Date / Time No Known Allergies Allergy Verified 01/17/17 08:12 Physical Exam - Constitutional Appears: Non-toxic - Head Exam Head Exam: ATRAUMATIC, NORMAL INSPECTION - Eye Exam Eye Exam: PERRL Pupil Exam: NORMAL ACCOMODATION - ENT Exam ENT Exam: Mucous Membranes Moist - Neck Exam Neck exam: Positive for: Normal Inspection - Respiratory Exam Respiratory Exam: Clear to Auscultation Bilateral, NORMAL BREATHING PATTERN - Cardiovascular Exam Cardiovascular Exam: +S1, +S2 - GI/Abdominal Exam GI & Abdominal Exam: Normal Bowel Sounds, Soft Additional comments: non tender, no guarding, no rebound tenderness, no rigidty no flank pain, no cva - Exam Additional comments: External genitali: grossly normal Vagina: cuff intac,t no blood, iminal discharge, - Extremities Exam Extremities exam: Positive for: normal inspection Results - Vital Signs Recent Vital Signs: Last Vital Signs Temp 97.4 F L 09/12/17 09:41 Pulse 84 09/12/17 09:41 Resp 20 09/12/17 09:41 BP 147/85 09/12/17 09:41 Pulse Ox 100 09/12/17 13:15 - Labs Result Diagrams: 09/12/17 10:41 09/12/17 10:41 Labs: Laboratory Results - last 24 hr 09/12/17 09/12/17 09/12/17 10:11 10:41 10:41 WBC 7.1 RBC 3.95 Hgb 11.6 D Hct 35.3 MCV 89.3 D MCH 29.4 MCHC 32.9 L RDW 17.1 H Plt Count 272 MPV 9.0 Neut % (Auto) 70.8 Lymph % (Auto) 18.1 L Smyth % (Auto) 6.4 Eos % (Auto) 4.0 Baso % (Auto) 0.7 Neut # 5.0 Lymph # 1.3 Smyth # 0.5 Eos # 0.3 Baso # 0.0 Sodium 134 Potassium 4.0 Chloride 103 Carbon Dioxide 19 L Anion Gap 16 BUN 21 H Creatinine 1.9 H Est GFR ( Amer) 35 Est GFR (Non-Af Amer) 29 Random Glucose 95 Calcium 8.8 Total Bilirubin 0.7 AST 35 ALT 54 H D Alkaline Phosphatase 107 Total Protein 8.9 H Albumin 4.0 Globulin 4.9 H Albumin/Globulin Ratio 0.8 L Urine Color Yellow Urine Clarity Hazy Urine pH 5.0 Ur Specific Vivian 1.011 Urine Protein 1+ H Urine Glucose (UA) Normal Urine Ketones Negative Urine Blood 3+ H Urine Nitrate Negative Urine Bilirubin Negative Urine Urobilinogen Normal Ur Leukocyte Esterase 2+ H Urine WBC (Auto) 38 H Urine RBC (Auto) 106 H Urine WBC Clumps (Auto) Few H Ur Squamous Epith Cells 4 Urine Bacteria Occ H Hyaline Casts 0-2 Urine HCG, Qual Negative - Imaging and Cardiology CT scan - abdomen Status: Report reviewed by me Additional comment: CT/US Interpretation: FINDINGS: There is limited evaluation of the solid organs without the administration of IV contrast. LOWER THORAX: No visible consolidation, pleural effusion, or pneumothorax. LIVER: Hepatomegaly. GALLBLADDER AND BILE DUCTS: Unremarkable unenhanced appearance. PANCREAS: Unremarkable unenhanced appearance. SPLEEN: Unremarkable unenhanced appearance. ADRENALS: Unremarkable unenhanced appearance. KIDNEYS AND URETERS : No hydronephrosis or obstructing renal calculus. Exophytic 19 mm lesion measures approximately 5 HU, likely cyst. Mild prominence of the left ureter without obstructing calculus. BLADDER: Mild thickening of the urinary bladder wall may be exaggerated by under distension. REPRODUCTIVE: Uterus is absent presumably due to hysterectomy. Left adnexal prominence of uncertain significance. APPENDIX: The appendix appears within normal limits of caliber. No secondary signs of acute appendicitis. BOWEL: The stomach is nondistended. Lack of oral contrast limits evaluation for bowel pathology. The bowel loops appear within normal limits of caliber without evidence of intestinal obstruction. Mild small bowel wall thickening. PERITONEUM: No significant free fluid. No definite free air. LYMPH NODES: Prominent but sub cm retroperitoneal lymph nodes, nonspecific. No bulky lymphadenopathy identified. VASCULATURE: No aortic aneurysm. BONES: No acute osseous abnormality is detected. OTHER FINDINGS: None. IMPRESSION: Mild prominence of the left ureter without obstructing calculus. Correlate clinically for possibility of recently passed stone. Suggest correlation with urinalysis and if indicated follow-up with procurement technician to exclude possibility of stricture or neoplasm. Mild thickening of the urinary bladder wall may be exaggerated by under distension. Exophytic 19 mm lesion measures approximately 5 HU, likely cyst. Hepatomegaly. Mild small bowel wall thickening may be seen in setting of enteritis. Uterus is absent presumably due to hysterectomy. Left adnexal prominence of uncertain significance. Recommend clinical correlation and pelvic ultrasound for further evaluation. Progress Note: Abdomen & pelvis CT, transvaginal US, blood work, and labs. Patient was given Pepcid, Zofran, Maalox, and Lactated Ringer's IV. Assessment & Plan (1) Left lateral abdominal pain Assessment and Plan: 42 y/o s/p Lap hysterectomy Post op ~ 6 weeks with hx of nephrolitahsis with non specific LLQ pain likley secondary to passed renal stone, currently stable -s/p Labs; CBC wnl, BUN/Cr Elevated 1.9. UA blood -s/p CT Scan: left uretral dilation suspious for stone , with non psecific left adnexa collection -s/p pelvic US -f/u Urology consult: f/u oupatient -d chome -percaitn given -Pain Managment prn Status: Acute
[2017-09-12] MEDS ORDERED: Sodium Chloride 0.9% 1,000 ML IV ONE (13:32)
[2017-09-12 15:00] VITALS: BP 135/85; PULSE 78; RESP 16; O2SAT 98
== END 2017-09-12 14:59 | disposition home or self-care (01) ==
LOC: C.ER 09:32
DX: R11.0 Nausea (principal); I12.9 Hypertensive chronic kidney disease with stage 1 through stage 4 chronic kidney disease, or unspecified chronic kidney disease; N18.9 Chronic kidney disease, unspecified; Z87.891 Personal history of nicotine dependence; Z87.442 Personal history of urinary calculi
CPT/HCPCS: 74176; 76830; 76856; 80053; 81001; 84703; 85025; 96361; 96374; 96375; 99284; J2405; J7040; J7120